=== PATIENT | female | born 1960 | race African-American/Black ===

== ENCOUNTER 2016-07-02 18:15 | Inpatient (IN) | payer OTHER ==
[2016-07-02] MEDS ORDERED: PNEUMOC 13-VAL CONJ-DIP CRM/PF 0.5 ML DISP.SYRIN IM ONE (18:36)
[2016-07-02] MEDS ORDERED: PNEUMOCOCCAL 23 VACCINE 0.5 ML VIAL IM ONE (18:45)
[2016-07-02] MEDS ORDERED: P-EPHED 60MG/TRIPROLIDI 2.5MG TABLET PO PRN (21:07)
[2016-07-02] MEDS ORDERED: MAG HYDROX/AL HYDROX/SIMETH 30 ML UNIT-DOSE CUP PO PRN (21:07)
[2016-07-02] MEDS ORDERED: LOPERAMIDE HCL 2 MG CAPSULE PO PRN (21:07)
[2016-07-02] MEDS ORDERED: hydrOXYzine PAMOATE 50 MG CAPSULE (FP) PO PRN (21:07)
[2016-07-02] MEDS ORDERED: MAGNESIUM CITRATE 300 ML BOTTLE PO PRN (21:07)
[2016-07-02] MEDS ORDERED: MAGNESIUM HYDROX 2400MG/30ML ORAL SUSPENSION 30 ML CUP PO PRN (21:07)
[2016-07-02] MEDS ORDERED: ACETAMINOPHEN 325 MG TABLET (FP) PO PRN (21:07)
[2016-07-02] MEDS ORDERED: guaiFENesin/D-METHORPHAN HB 10 ML UNIT-DOSE CUPS PO PRN (21:07)
[2016-07-02] MEDS ORDERED: NICOTINE POLACRILEX 2 MG GUM BUC PRN (21:07)
[2016-07-02] MEDS ORDERED: MENTHOL/PHENOL 1 EACH UD MM PRN (21:07)
--- NOTE | 2016-07-02 21:16 | HP ---
[facility] Rehab Assess/Revision - Admission History Admitted to Rehab from: [facility] [place] - Vital signs Vital Signs: Vital Signs Period Temp Pulse Resp BP Sys/Silva Pulse Ox Last 24 Hr 97.4 F 53 18 102/65 - Findings Detox History & Physical reviewed: Yes Concur with findings: Yes
[2016-07-02] MEDS: diphenhydrAMINE HCL 50 MG CAPSULE PO PRN (21:39)
[2016-07-02] MEDS: THIAMINE HCL 100 MG TABLET (FP) PO SCH (21:39)
[2016-07-03] MEDS ORDERED: METHADONE HCL 10 MG TABLET PO SCH (06:00)
[2016-07-03] MEDS ORDERED: METHADONE HCL 40 MG DISPERSABLE TABLET PO SCH (06:09)
[2016-07-03] MEDS: METHADONE HCL 40 MG DISPERSABLE TABLET PO SCH (06:25)
[2016-07-03] MEDS ORDERED: NICOTINE 14 MG/24 HOURS TOPICAL PATCH TD SCH (10:00)
[2016-07-03] MEDS: PRENATAL VITAMINS W/ FOLIC ACID TABLET (FP) PO SCH (10:19)
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
[2016-07-03] MEDS ORDERED: PNEUMOCOCCAL 23 VACCINE 0.5 ML VIAL IM ONE (12:00)
[2016-07-03] MEDS: AMMONIUM LACTATE 12% LOTION 225 GM BOTTLE TP SCH ×2 (12:50→22:12)
[2016-07-03] MEDS: COLLOIDAL OATMEAL 1 BAR EACH TP PRN (12:50)
[2016-07-03] MEDS ORDERED: PT OWN MED DRAWER 7, Y5N ONE (12:51)
[2016-07-03] MEDS: diphenhydrAMINE HCL 50 MG CAPSULE PO PRN (21:40)
[2016-07-03] MEDS: THIAMINE HCL 100 MG TABLET (FP) PO SCH (21:40)
[2016-07-04] MEDS: IBUPROFEN 400 MG TABLET (FP) PO PRN (00:24)
[2016-07-04] MEDS: METHADONE HCL 40 MG DISPERSABLE TABLET PO SCH (06:39)
[2016-07-04] MEDS: AMMONIUM LACTATE 12% LOTION 225 GM BOTTLE TP SCH ×2 (10:25→21:34)
[2016-07-04] MEDS: PRENATAL VITAMINS W/ FOLIC ACID TABLET (FP) PO SCH (10:25)
[2016-07-04] MEDS: THIAMINE HCL 100 MG TABLET (FP) PO SCH (21:29)
[2016-07-04] MEDS: diphenhydrAMINE HCL 50 MG CAPSULE PO PRN (21:30)
[2016-07-05] MEDS: METHADONE HCL 40 MG DISPERSABLE TABLET PO SCH (06:19)
[2016-07-05] MEDS ORDERED: PT OWN MED DRAWER 7, Y5N ONE (09:00)
--- NOTE | 2016-07-05 10:03 | PN ---
[facility] Progress Note Note: patient has hepatitis c told by her pmd 18 years ago ,follow up by dr Scott ,advise to see her pmd and specialist upon discharge
[2016-07-05] MEDS: PRENATAL VITAMINS W/ FOLIC ACID TABLET (FP) PO SCH (10:35)
[2016-07-05] MEDS: AMMONIUM LACTATE 12% LOTION 225 GM BOTTLE TP SCH ×2 (10:35→21:11)
[2016-07-05] MEDS: ARIPiprazole 10 MG TABLET PO SCH (14:19)
[2016-07-05] MEDS: QUEtiapine FUMARATE 50 MG TABLET PO SCH (21:11)
[2016-07-05] MEDS: THIAMINE HCL 100 MG TABLET (FP) PO SCH (21:11)
[2016-07-06] MEDS: METHADONE HCL 40 MG DISPERSABLE TABLET PO SCH (06:33)
[2016-07-06] MEDS: AMMONIUM LACTATE 12% LOTION 225 GM BOTTLE TP SCH ×2 (10:33→21:15)
[2016-07-06] MEDS: ARIPiprazole 10 MG TABLET PO SCH (10:34)
[2016-07-06] MEDS: PRENATAL VITAMINS W/ FOLIC ACID TABLET (FP) PO SCH (10:34)
[2016-07-06] MEDS ORDERED: PT OWN MED DRAWER 7, Y5N ONE (19:59)
[2016-07-06] MEDS: THIAMINE HCL 100 MG TABLET (FP) PO SCH (21:14)
[2016-07-06] MEDS: QUEtiapine FUMARATE 50 MG TABLET PO SCH (21:14)
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
[2016-07-07] MEDS: METHADONE HCL 40 MG DISPERSABLE TABLET PO SCH (06:07)
[2016-07-07] MEDS: COLLOIDAL OATMEAL 1 BAR EACH TP PRN (06:08)
[2016-07-07] MEDS ORDERED: PT OWN MED DRAWER 7, Y5N ONE ×2 (09:22→19:47)
[2016-07-07] MEDS: AMMONIUM LACTATE 12% LOTION 225 GM BOTTLE TP SCH ×2 (10:58→21:38)
[2016-07-07] MEDS: PRENATAL VITAMINS W/ FOLIC ACID TABLET (FP) PO SCH (10:58)
[2016-07-07] MEDS: ARIPiprazole 10 MG TABLET PO SCH (10:58)
[2016-07-07] MEDS: QUEtiapine FUMARATE 50 MG TABLET PO SCH (21:38)
[2016-07-07] MEDS: THIAMINE HCL 100 MG TABLET (FP) PO SCH (21:38)
[2016-07-08] MEDS: METHADONE HCL 40 MG DISPERSABLE TABLET PO SCH (06:34)
[2016-07-08] MEDS: ARIPiprazole 10 MG TABLET PO SCH (10:29)
[2016-07-08] MEDS: PRENATAL VITAMINS W/ FOLIC ACID TABLET (FP) PO SCH (10:29)
[2016-07-08] MEDS: AMMONIUM LACTATE 12% LOTION 225 GM BOTTLE TP SCH ×2 (10:29→21:34)
[2016-07-08] MEDS ORDERED: PT OWN MED DRAWER 7, Y5N ONE (20:29)
[2016-07-08] MEDS: QUEtiapine FUMARATE 50 MG TABLET PO SCH (21:34)
[2016-07-08] MEDS: THIAMINE HCL 100 MG TABLET (FP) PO SCH (21:34)
[2016-07-09] MEDS: METHADONE HCL 40 MG DISPERSABLE TABLET PO SCH (05:57)
[2016-07-09] MEDS: AMMONIUM LACTATE 12% LOTION 225 GM BOTTLE TP SCH ×2 (10:19→21:31)
[2016-07-09] MEDS: ARIPiprazole 10 MG TABLET PO SCH (10:19)
[2016-07-09] MEDS: PRENATAL VITAMINS W/ FOLIC ACID TABLET (FP) PO SCH (10:19)
[2016-07-09] MEDS ORDERED: PT OWN MED DRAWER 7, Y5N ONE (20:12)
[2016-07-09] MEDS: THIAMINE HCL 100 MG TABLET (FP) PO SCH (21:31)
[2016-07-09] MEDS: QUEtiapine FUMARATE 50 MG TABLET PO SCH (21:31)
[2016-07-10] MEDS: METHADONE HCL 40 MG DISPERSABLE TABLET PO SCH (06:13)
[2016-07-10] MEDS: PRENATAL VITAMINS W/ FOLIC ACID TABLET (FP) PO SCH (10:08)
[2016-07-10] MEDS: ARIPiprazole 10 MG TABLET PO SCH (10:08)
[2016-07-10] MEDS: AMMONIUM LACTATE 12% LOTION 225 GM BOTTLE TP SCH ×2 (10:09→21:43)
[2016-07-10] MEDS: QUEtiapine FUMARATE 50 MG TABLET PO SCH (21:43)
[2016-07-10] MEDS: THIAMINE HCL 100 MG TABLET (FP) PO SCH (21:43)
[2016-07-11] MEDS: METHADONE HCL 40 MG DISPERSABLE TABLET PO SCH (06:36)
[2016-07-11] MEDS: ARIPiprazole 10 MG TABLET PO SCH (09:57)
[2016-07-11] MEDS: AMMONIUM LACTATE 12% LOTION 225 GM BOTTLE TP SCH ×2 (09:57→21:41)
[2016-07-11] MEDS: PRENATAL VITAMINS W/ FOLIC ACID TABLET (FP) PO SCH (09:57)
[2016-07-11] MEDS ORDERED: PT OWN MED DRAWER 7, Y5N ONE (20:05)
[2016-07-11] MEDS: QUEtiapine FUMARATE 50 MG TABLET PO SCH (21:40)
[2016-07-11] MEDS: THIAMINE HCL 100 MG TABLET (FP) PO SCH (21:40)
[2016-07-11] MEDS: IBUPROFEN 400 MG TABLET (FP) PO PRN (22:59)
[2016-07-11] MEDS: diphenhydrAMINE HCL 50 MG CAPSULE PO PRN (23:00)
[2016-07-12] MEDS: METHADONE HCL 40 MG DISPERSABLE TABLET PO SCH (06:28)
[2016-07-12] MEDS: COLLOIDAL OATMEAL 1 BAR EACH TP PRN (06:52)
[2016-07-12] MEDS ORDERED: PT OWN MED DRAWER 7, Y5N ONE (08:47)
[2016-07-12] MEDS: AMMONIUM LACTATE 12% LOTION 225 GM BOTTLE TP SCH ×2 (10:06→23:12)
[2016-07-12] MEDS: PRENATAL VITAMINS W/ FOLIC ACID TABLET (FP) PO SCH (10:06)
[2016-07-12] MEDS: ARIPiprazole 10 MG TABLET PO SCH (10:06)
--- NOTE | 2016-07-12 16:07 | PN ---
Psychiatric Progress Note Vital Signs: Vital Signs Period Temp Pulse Resp BP Sys/Silva Pulse Ox Last 24 Hr 97.9 F 52 18 112/72 Date of Session: 07/12/16 Chief Complaint:: Discharge visit HPI: Patient adddressed Alcohol,Cocaine,Opioid and Anxiolytic dependence comorbid with Substance induced mood disorder. ROS: Significant for BA. Current Medications: Active Medications Generic Name Dose Route Start Last Admin Trade Name Freq PRN Reason Stop Dose Admin Acetaminophen 650 mg 07/02/16 21:07 Tylenol - PO Q4H PRN FEVER OR PAIN Al Hydroxide/Mg Hydroxide 30 ml 07/02/16 21:07 Mylanta Oral Suspension - PO Q6H PRN DYSPEPSIA Aripiprazole 10 mg 07/05/16 13:45 07/12/16 10:06 Abilify PO 10 mg DAILY CANDIDA Administration Colloidal Oatmeal 1 applic 07/03/16 12:08 07/12/16 06:52 Aveeno Soap - TP 1 applic DAILY PRN Administration HYGEINE Diphenhydramine HCl 50 mg 07/02/16 21:07 07/11/16 23:00 Benadryl - PO 50 mg HSMR1 PRN Administration FOR ITCHING Eucalyptus/Menthol/Phenol/Sorbitol 1 each 07/02/16 21:07 Cepastat Lozenge - MM Q4H PRN SORE THROAT Guaifenesin 10 ml 07/02/16 21:07 Robitussin Dm - PO Q6H PRN COUGH Hydroxyzine Pamoate 50 mg 07/02/16 21:07 Vistaril - PO Q4H PRN AGITATION Ibuprofen 400 mg 07/02/16 21:07 07/11/16 22:59 Motrin - PO 400 mg Q6H PRN Administration PAIN Lactic Acid 1 applic 07/03/16 12:15 07/12/16 10:06 Lac-Hydrin 12 TP Not Given BID CANDIDA Loperamide HCl 4 mg 07/02/16 21:07 Imodium - PO Q6H PRN DIARRHEA Magnesium Hydroxide 30 ml 07/02/16 21:07 Milk Of Magnesia - PO DAILY PRN CONSTIPATION Methadone HCl 120 mg 07/10/16 06:15 07/12/16 06:28 Dolophine - PO 120 mg DAILY@0600 CANDIDA Administration Nicotine Polacrilex 2 mg 07/02/16 21:07 07/12/16 12:15 Nicorette Gum - BUC 2 mg Q2H PRN Administration NICOTINE REPLACEMENT RX Multivit/Folic Acid/Iron 1 tab 07/03/16 10:00 07/12/16 10:06 Vitamins (Sjr) - PO 1 tab DAILY CANDIDA Administration Pseudoephedrine/Triprolidine 1 combo 07/02/16 21:07 Actifed - PO TID PRN NASAL CONGESTION Quetiapine Fumarate 50 mg 07/05/16 22:00 07/11/16 21:40 Seroquel - PO 50 mg HS CANDIDA Administration Thiamine HCl 100 mg 07/02/16 22:00 07/11/16 21:40 Vitamin B1 - PO 100 mg HS CANDIDA Administration Current Side Effect: No Lab tests ordered: No Lab tests reviewed: Yes Provider note:: Patient will complete this program tomorrow 07/13/16.She has met ehr treatment goals and will continue to address her issues on outpatient basis .Patient continues to find that Seroquel 50 mg po hs and Abilify 10 mg po daily help to reduce her anxiety,mood instability.Scripts for 30 days supply provided. Patient is stable for discharge tomorrow 07/13/16. Patient identifies areas of difficulties and ways,attitudes she can utilize to utilze to maintin recovery. Patient is stable for dischrge tomorrow 07/13/16. Total face to face time:: 30 Mental Status Exam - Mental Status Exam Alert and Oriented to: Time, Place, Person Cognitive Function: Grossly Intact Patient Appearance: Well Groomed Mood: Euthymic Affect: Mood Congruent Patient Behavior: Cooperative Speech Pattern: Clear Voice Loudness: Normal Thought Process: Goal Oriented Thought Disorder: Not Present Hallucinations: Denies Suicidal Ideation: Denies Homicidal Ideation: Denies Insight/Judgement: Fair Sleep: Fair Appetite: Fair Muscle strength/Tone: Normal Gait/Station: Normal Psychiatric Treatment Plan - Problem List (2) Cocaine dependence Qualifiers: (3) Nicotine dependence Qualifiers: (7) Asthma Qualifiers: (8) Methadone maintenance therapy patient Comment: verified with 120mg of methadone from [facility] last dose yesterday.
[2016-07-12] MEDS: THIAMINE HCL 100 MG TABLET (FP) PO SCH (21:38)
[2016-07-12] MEDS: QUEtiapine FUMARATE 50 MG TABLET PO SCH (21:38)
[2016-07-12] MEDS: diphenhydrAMINE HCL 50 MG CAPSULE PO PRN (22:45)
[2016-07-13] MEDS: METHADONE HCL 40 MG DISPERSABLE TABLET PO SCH (06:34)
[2016-07-13 07:29] VITALS: BP 102/66; PULSE 56; TEMP 98.3
[2016-07-13] MEDS ORDERED: PT OWN MED DRAWER 7, Y5N ONE (08:51)
[2016-07-13] MEDS: PRENATAL VITAMINS W/ FOLIC ACID TABLET (FP) PO SCH (09:18)
[2016-07-13] MEDS: AMMONIUM LACTATE 12% LOTION 225 GM BOTTLE TP SCH (09:18)
[2016-07-13] MEDS: ARIPiprazole 10 MG TABLET PO SCH (09:19)
== END 2016-07-13 09:25 | disposition home or self-care (01) | DRG 772 ==
LOC: YASAS 18:15 → Y3E 18:16
PROVIDERS: ADMIT Psychiatry & Neurology Psychiatry; ATTEND Psychiatry & Neurology Psychiatry
PROC: HZ42ZZZ Group Counseling for Substance Abuse Treatment, Cognitive-Behavioral (ICD-10-PCS; principal; 2016-07-02)
DX: F10.20 Alcohol dependence, uncomplicated (principal); F11.20 Opioid dependence, uncomplicated; F13.20 Sedative, hypnotic or anxiolytic dependence, uncomplicated; F17.210 Nicotine dependence, cigarettes, uncomplicated; F19.24 Other psychoactive substance dependence with psychoactive substance-induced mood disorder; J45.909 Unspecified asthma, uncomplicated; Z85.3 Personal history of malignant neoplasm of breast; S09.90XA Unspecified injury of head, initial encounter; W01.190A Fall on same level from slipping, tripping and stumbling with subsequent striking against furniture, initial encounter; Y93.89 Activity, other specified; Y92.230 Patient room in hospital as the place of occurrence of the external cause
CPT/HCPCS: 90732; G0009